=== PATIENT | female | born 1995 | race Two or more races ===

== ENCOUNTER 2022-01-09 09:30 | Inpatient (IN) | payer BC ==
[2022-01-09 10:39] VITALS: BMI 32.2
[2022-01-09] MEDS ORDERED: DINOPROSTONE 10 MG VAGINAL SUPPOSITORY VG ONE (10:50)
[2022-01-09 11:17] LABS: INR 0.94 (0.83-1.09); PROTHROMBIN TIME (PATIENT) 10.8 SEC (9.7-13.0)
[2022-01-09 11:30] LABS: BLOOD UREA NITROGEN 5.1 mg/dL (7-18); CALCIUM 9.3 mg/dL (8.5-10.1)
[2022-01-09 11:32] LABS: ALBUMIN 2.8 g/dl (3.4-5.0)
[2022-01-09 11:34] LABS: CREATININE 0.7 mg/dL (0.55-1.3)
[2022-01-09 11:36] LABS: BILIRUBIN,TOTAL 0.4 mg/dL (0.2-1); TOT PROT 6.4 g/dl (6.4-8.2)
[2022-01-09] MEDS ORDERED: AMPICILLIN - 2 GM in SODIUM CHLORIDE 100 ML IVPB ONE ×2 (12:00→13:30)
[2022-01-09] MEDS: ELECTROLYTE-148 SOLN 1,000 ML IV SCH (13:10)
[2022-01-09] MEDS ORDERED: AMPICILLIN SODIUM 2 GM VIAL ONE (13:15)
[2022-01-09] MEDS ORDERED: PROMETHAZINE HCL 25 MG/1 ML VIAL IVPUSH PRN (15:33)
[2022-01-09] MEDS ORDERED: BUTORPHANOL TARTRATE 2 MG/ML VIAL IVPUSH PRN (15:33)
[2022-01-09] MEDS ORDERED: AMPICILLIN - 1 GM in SODIUM CHLORIDE 100 ML IVPB SCH (16:00)
[2022-01-09] MEDS ORDERED: AMPICILLIN SODIUM 1 GM VIAL ONE (17:13)
[2022-01-09] MEDS: AMPICILLIN - 1 GM in SODIUM CHLORIDE 100 ML IVPB SCH (17:28)
[2022-01-10] MEDS ORDERED: OXYTOCIN 30 UNITS in 0.9% NS 30 UNIT/500 ML INFUS.BAG IVPB ONE (05:15)
[2022-01-10] MEDS ORDERED: AMPICILLIN SODIUM 1 GM VIAL ONE ×2 (05:15→09:10)
[2022-01-10] MEDS: AMPICILLIN - 1 GM in SODIUM CHLORIDE 100 ML IVPB SCH ×5 (05:30→21:08)
[2022-01-10] MEDS ORDERED: OXYTOCIN 30 UNITS in 0.9% NS 30 UNIT/500 ML INFUS.BAG IVPB SCH (05:30)
[2022-01-10] MEDS: ELECTROLYTE-148 SOLN 1,000 ML IV SCH (11:00)
[2022-01-10] MEDS ORDERED: morphine SULFATE/PF 1 MG/2 ML (2cc Syringe - QUVA) ONE (13:05)
[2022-01-10] MEDS ORDERED: ceFAZolin SODIUM 1 GM VIAL ONE ×2 (13:07)
[2022-01-10] MEDS ORDERED: CITRIC ACID/SODIUM CITRATE 30 ML UNIT-DOSE CUP PO ONE (13:08)
[2022-01-10] MEDS ORDERED: ELECTROLYTE-148 SOLN 500 ML IV ONE (13:08)
[2022-01-10] MEDS ORDERED: oxyCODONE HCL 5 MG TABLET PO PRN ×2 (14:45→14:54)
[2022-01-10] MEDS ORDERED: SENNOSIDES/DOCUSATE COMBO (SENNA PLUS) TABLET (UD) PO PRN (14:45)
[2022-01-10] MEDS ORDERED: ONDANSETRON 4 MG/2 ML VIAL IVPB PRN (14:45)
[2022-01-10] MEDS ORDERED: IBUPROFEN 800 MG/8 ML IJ IVPB PRN (14:45)
[2022-01-10 14:55] LABS: CORD BASE EXCESS -2.5 mmol/L (0-2); CORD HCO3 24.2 mmHg (20-29); CORD pH 7.312 (7.14-7.44)
[2022-01-10] MEDS: OXYTOCIN 20 UNITS in 0.9% NS 20 UNIT/1,000 ML INFUS.BAG IV SCH (15:00)
[2022-01-10] MEDS ORDERED: morphine SULFATE/PF 1 MG/2 ML (2cc Syringe - QUVA) EP ONE (15:03)
[2022-01-10] MEDS ORDERED: IBUPROFEN 600 MG TABLET (FP) PO PRN (15:03)
[2022-01-10] MEDS ORDERED: ONDANSETRON 4 MG/2 ML VIAL IVPUSH PRN (15:03)
[2022-01-10] MEDS ORDERED: ACETAMINOPHEN 325 MG TABLET (FP) PO PRN (15:03)
[2022-01-10] MEDS ORDERED: OXYTOCIN 20 UNITS in 0.9% NS 20 UNIT/1,000 ML INFUS.BAG IV ONE (16:11)
[2022-01-10] MEDS ORDERED: RHO(D) IMMUNE GLOBULIN 1,500 UNIT DISP.SYRIN IM ONE (19:17)
[2022-01-10] MEDS: CEFAZOLIN 1 GM in DEXTROSE 5%-WATER - 50 ML IVPB SCH (21:13)
[2022-01-10 21:22] VITALS: RESP 18
[2022-01-10] MEDS: ACETAMINOPHEN 1000 MG/100 ML BAG IVPB SCH (22:12)
[2022-01-11] MEDS ORDERED: CEFAZOLIN 1 GM in DEXTROSE 5%-WATER - 50 ML IVPB SCH (03:30)
[2022-01-11] MEDS: CEFAZOLIN 1 GM in DEXTROSE 5%-WATER - 50 ML IVPB SCH (03:46)
[2022-01-11] MEDS: SIMETHICONE 80 MG TAB.CHEW (FP) PO PRN ×3 (05:59→19:14)
[2022-01-11] MEDS: ACETAMINOPHEN 1000 MG/100 ML BAG IVPB SCH ×2 (05:59→13:13)
[2022-01-11 08:35] LABS: BASO % 0.2 % (0-2.0); EOS % 0.5 % (0-4.5); HEMATOCRIT 29.6 % (32.4-45.2); LYMPH % 9.8 % (8-40); MCH 29.3 pg (25.7-33.7); MCHC 33.7 g/dl (32.0-36.0); MEAN CELL VOLUME 86.9 fl (80-96); MEAN PLT VOLUME 8.9 fl (7.5-11.1); MONO % 9.3 % (3.8-10.2); NEUT % 80.2 % (42.8-82.8); PLATELET COUNT 178 10^3/uL (134-434); RBC 3.41 M/mm3 (3.60-5.2); RDW 13.9 % (11.6-15.6); WHITE BLOOD COUNT 10.7 K/mm3 (4.0-10.0)
[2022-01-11] MEDS ORDERED: BISACODYL 10 MG SUPP.RECT RC PRN (14:45)
[2022-01-11] MEDS: oxyCODONE HCL 5 MG TABLET PO PRN ×2 (15:02→19:14)
[2022-01-11] MEDS: OXYTOCIN 20 UNITS in 0.9% NS 20 UNIT/1,000 ML INFUS.BAG IV SCH (19:50)
[2022-01-11] MEDS: ELECTROLYTE-148 SOLN 1,000 ML IV SCH (19:50)
[2022-01-12] MEDS: SIMETHICONE 80 MG TAB.CHEW (FP) PO PRN ×3 (04:38→13:40)
[2022-01-12] MEDS: oxyCODONE HCL 5 MG TABLET PO PRN (04:38)
[2022-01-12] MEDS: IBUPROFEN 600 MG TABLET (FP) PO PRN ×2 (09:09→13:40)
[2022-01-13] MEDS: SIMETHICONE 80 MG TAB.CHEW (FP) PO PRN ×2 (01:07→13:45)
[2022-01-13] MEDS: IBUPROFEN 600 MG TABLET (FP) PO PRN (01:07)
[2022-01-13] MEDS ORDERED: oxyCODONE HCL 5 MG TABLET PO PRN (07:07)
[2022-01-13] MEDS ORDERED: IBUPROFEN 600 MG TABLET (FP) PO PRN (07:07)
[2022-01-13] MEDS ORDERED: ACETAMINOPHEN 500 MG TABLET (FP) PO SCH (08:30)
[2022-01-13 13:05] VITALS: BP 97/59; PULSE 104; TEMP 98.2
== END 2022-01-13 14:35 | disposition home or self-care (01) | DRG 788 ==
LOC: JLDR 09:30 → J3W 01-10 16:30
PROVIDERS: ADMIT Specialist; ATTEND Specialist
PROC: 10D00Z1 Extraction of Products of Conception, Low, Open Approach (ICD-10-PCS; principal; 2022-01-10)
DX: O76 Abnormality in fetal heart rate and rhythm complicating labor and delivery (principal); O69.1XX0 Labor and delivery complicated by cord around neck, with compression, not applicable or unspecified; Z3A.39 39 weeks gestation of pregnancy; Z37.0 Single live birth
CPT/HCPCS: 36415; 36600; 80053; 82803; 85025; 85461; 85610; 85730; 86850; 86870; 86900; 86901; 86902; 86999; 88307-TC; 94010; J1561